=== PATIENT | female | born 1980 | race Caucasian/White ===

== ENCOUNTER 2018-12-07 14:57 | Observation (INO) | payer BC ==
[~2018-12-07] VITALS: Ht 170.2 cm; Wt 136.5 kg
[~2018-12-07 14:57] MED LIST: ACETAMINOPHEN-1 EAC1 PO; BENADRYL25 MG PO; CIPRODEX OTIC7.5 ML AD; CLONIDINE HCL0.1 MG PO; FLEXERIL10 MG PO; GABAPENTIN100 MG PO; GABAPENTIN300 MG; LAMICTAL200 MG PO; LATUDA60 MG PO; METFORMIN HCL1000 MG PO; PROPRANOLOL HCL20 MG PO; SEROQUEL100 MG PO; SEROQUEL300 MG PO; ULTRAM50 MG PO; ZITHROMAX250 MG PO; ZOLOFT100 MG PO; [UNRECOGNIZED DRUG - REMARK]
[2018-12-07] MEDS ORDERED: LITHIUM CARBON300 MG PO (15:13)
[2018-12-07] MEDS ORDERED: ZIPRASIDONE HCL60 MG PO (15:14)
[2018-12-07] MEDS ORDERED: BUSPIRONE HCL15 MG PO (15:14)
[2018-12-07] MEDS ORDERED: VITAMIN D250000 UNIT PO (15:14)
[2018-12-07] MEDS ORDERED: LEVOTHYROXINE75 MCG PO (15:15)
[2018-12-08] MEDS ORDERED: GABAPENTIN800 MG PO (14:48)
[2018-12-08] MEDS ORDERED: NEURONTIN800 MG PO (14:49)
[2018-12-08] MEDS ORDERED: VENTOLIN HFA18 GM INH (14:54)
--- NOTE | 2018-12-08 20:13 | EKG ---
[facility] [address] [facility] [place], [place] [address] Signed Normal sinus rhythm Normal ECG No previous ECGs available Confirmed by KARYNA CORNEJO MD ([id number]) on 12/08/2018 8:12:59 PM Electronically Signed By: KARYNA CORNEJO MD 12/08/182012 PATIENT NAME: JAZIEL TOWNSEND Electrocardiogram DATE OF : 80 PHYSICIAN: KARYNA CORNEJO MD REPORT #: [id number] REPORT IS CONFIDENTIAL AND NOT TO BE RELEASED WITHOUT AUTHORIZATION
[2018-12-09] MEDS ORDERED: MAPAP325 MG PO (10:19)
[2018-12-09] MEDS ORDERED: OXYCODON-ACETA1 EAC2 PO (10:19)
[2018-12-09] MEDS ORDERED: MOTRIN IB200 MG PO (10:20)
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
--- NOTE | 2018-12-11 10:33 | HP ---
[facility] [address] [place] [address] Signed ADMISSION DATE: 12/07/2018 TIME: 10:10 p.m. PROBLEM: Acute calculous cholecystitis. HISTORY OF PRESENT ILLNESS: This morbidly obese 38-year-old woman, who is and suffers from bipolar disease, who presented to the emergency room where she was evaluated by Dr. Ellis with complaints of right lower and mid abdominal pain. Concern was maintained that this would represent appendicitis. Her white count was slightly elevated, it was 11.3. Her hematocrit was 42 and platelets 275,000. Chem profile was essentially normal including liver enzymes. Beta-hCG was negative. Lipase was normal as well. Urinalysis was also normal. A CT scan was done anticipating either nephrolithiasis or appendicitis, however, she was found to have neither of those, but rather distended gallbladder with pericholecystic fluid stranding and gallbladder wall thickening and a single gallstone. On that basis, consideration was made that this represents acute calculous cholecystitis. The patient affirmed that her pain is in the right mid abdomen rather than the right upper and right lower. PAST MEDICAL HISTORY: Significant for bipolar disease. MEDICATIONS: Include: 1. Buspirone. 2. Clonidine. 3. Diphenhydramine. 4. Vitamin D2. 5. Gabapentin. 6. Synthroid. 7. Barclay carbonate. 8. Propranolol. 9. Ziprasidone. Electronically Signed By: NESSA ROSS MD 12/11/18 1033 PATIENT NAME: JAZIEL TOWNSEND HISTORY AND PHYSICAL DATE OF : 80 REPORT #: [id number] PHYSICIAN: NESSA ROSS MD PCP: MARIO SIMS REPORT IS CONFIDENTIAL AND NOT TO BE RELEASED WITHOUT AUTHORIZATION [facility] [address] [place] [address] Signed ALLERGIES: Listed as hydrocodone. SOCIAL HISTORY: The patient works at [employer] [place]. She is . They have no children. REVIEW OF SYSTEMS: Denies any shortness of breath or chest pain. She has had no dysphagia or dysuria. Denies any hematemesis or blood per rectum. PHYSICAL EXAMINATION: GENERAL: Morbidly obese white woman, who is alert and oriented. Does not appear to be manic or depressive at this time. HEENT: Mucous membranes are markedly dry. Trachea is midline. CHEST: Clear. HEART: Regular. ABDOMEN: Impressively obese. There is mild poorly localized tenderness in the right abdomen. EXTREMITIES: Show no clubbing, cyanosis, or edema. LABORATORY DATA: Lab studies are as described. CT scan was reviewed and interpretation reviewed and noted as above. ASSESSMENT: The patient apparently has acute calculous cholecystitis despite the somewhat atypical area of pain at presentation. Her morbid obesity may obfuscate the typical physical exam and complaint. I would recommend fluid resuscitation, IV antibiotics, parenteral pain medication and administration of her usual psychiatric medications. Consideration will be made for cholecystectomy tomorrow presuming further evaluation is supportive of that. MD GRABIEL Ndiaye/MODL Electronically Signed By: NESSA ROSS MD 12/11/18 1033 PATIENT NAME: JAZIEL TOWNSEND HISTORY AND PHYSICAL DATE OF : 80 REPORT #: [id number] PHYSICIAN: NESSA ROSS MD PCP: MARIO SIMS REPORT IS CONFIDENTIAL AND NOT TO BE RELEASED WITHOUT AUTHORIZATION [address] [address] Signed /[id number] cc: NESTOR Thayer MD Copies: MARIO SIMS WILLIAM S MD ~ Electronically Signed By: NESSA ROSS MD 12/11/18 1033 PATIENT NAME: JAZIEL TOWNSEND HISTORY AND PHYSICAL DATE OF : 80 REPORT #: [id number] PHYSICIAN: NESSA ROSS MD PCP: MARIO SIMS REPORT IS CONFIDENTIAL AND NOT TO BE RELEASED WITHOUT AUTHORIZATION
== END 2018-12-09 11:15 | disposition home or self-care (01) ==
LOC: ED 14:57 → MS 14:59 → ED 22:12 → MS 22:12
PROVIDERS: ADMIT Surgery
PROC: BF101ZZ Fluoroscopy of Bile Ducts using Low Osmolar Contrast (ICD-10-PCS; 2018-12-08)
PROC: 0FT44ZZ Resection of Gallbladder, Percutaneous Endoscopic Approach (ICD-10-PCS; principal; 2018-12-08 11:30)
DX: K80.00 Calculus of gallbladder with acute cholecystitis without obstruction (principal); E66.01 Morbid (severe) obesity due to excess calories; F17.210 Nicotine dependence, cigarettes, uncomplicated; F31.9 Bipolar disorder, unspecified; E03.9 Hypothyroidism, unspecified; Z79.899 Other long term (current) drug therapy; Z88.5 Allergy status to narcotic agent; Z68.42 Body mass index [BMI] 45.0-49.9, adult
CPT/HCPCS: 00790; 36415; 74177; 74300; 80053; 81001; 82247; 82465; 83615; 83690; 84100; 84478; 84550; 84703; 85025; 93005; 93010; 94762; 96361; 96372; 96375; 96376; 99285-25; 99406; G0378; J0330; J0690; J1100; J1170; J1644; J1720; J1885; J2250; J2405; J2704; J2765; J3010; J7030; J7042; J7120; Q9967

== ENCOUNTER 2019-09-28 14:21 | Emergency (ER) | payer BC ==
[~2019-09-28] VITALS: Ht 170.2 cm; Wt 136.5 kg
[~2019-09-28 14:21] MED LIST changes: +BUSPIRONE HCL15 MG PO; +GABAPENTIN800 MG PO; +LEVOTHYROXINE75 MCG PO; +LITHIUM CARBON300 MG PO; +MAPAP325 MG PO; +MOTRIN IB200 MG PO; +NEURONTIN800 MG PO; +OXYCODON-ACETA1 EAC2 PO; +VENTOLIN HFA18 GM INH; +VITAMIN D250000 UNIT PO; +ZIPRASIDONE HCL60 MG PO
[2019-09-28] MEDS ORDERED: ONDANSETRON ODT4 MG PO (14:59)
[2019-09-28] MEDS ORDERED: OPTICHAMBER DI1 EACH MISC (14:59)
--- NOTE | 2019-09-28 19:29 | EKG ---
[facility] [address] [facility] [place] [address] Signed Normal sinus rhythm Rightward axis Nonspecific T wave abnormality Prolonged QT Abnormal ECG When compared with ECG of 08-DEC-2018 10:12, Vent. rate has increased BY 32 BPM Nonspecific T wave abnormality now evident in Anterior leads Confirmed by RASHID RODRIGUEZ MD ([id number]) on 09/28/2019 7:28:51 PM Electronically Signed By: RASHID RODRIGUEZ MD 09/28/19 1929 PATIENT NAME: JAZIEL TOWNSEND Electrocardiogram DATE OF : 80 PHYSICIAN: RASHID RODRIGUEZ MD REPORT #: [id number] REPORT IS CONFIDENTIAL AND NOT TO BE RELEASED WITHOUT AUTHORIZATION
== END 2019-09-29 01:24 | disposition short-term general hospital (02) ==
LOC: ED 14:21
DX: I26.99 Other pulmonary embolism without acute cor pulmonale (principal); F31.9 Bipolar disorder, unspecified; F17.200 Nicotine dependence, unspecified, uncomplicated; Z88.5 Allergy status to narcotic agent; Z79.899 Other long term (current) drug therapy; Z79.51 Long term (current) use of inhaled steroids
CPT/HCPCS: 71260; 80053; 81001; 83880; 84484; 85025; 85379; 85730; 93005; 93010; 94640; 96361; 99285-25; J1644; J2270; J2405; J2550; J2997; J7030; Q9967

== ENCOUNTER 2023-01-17 17:42 | Emergency (ER) | payer OTHER ==
[~2023-01-17] VITALS: Ht 170.2 cm; Wt 116.6 kg
[~2023-01-17 17:42] MED LIST changes: +ELIQUIS5 MG PO; +ONDANSETRON ODT4 MG PO; +OPTICHAMBER DI1 EACH MISC; +RANITIDINE HCL150 MG PO; +REMERON30 MG PO
[2023-01-17] MEDS ORDERED: PERCOCET 5-3251 EACH PO (20:57)
[2023-01-17 22:14] VITALS: BP 130/65
== END 2023-01-17 22:14 | disposition home or self-care (01) ==
LOC: ED 17:42
DX: S01.81XA Laceration without foreign body of other part of head, initial encounter (principal); F17.200 Nicotine dependence, unspecified, uncomplicated; E11.9 Type 2 diabetes mellitus without complications; V89.2XXA Person injured in unspecified motor-vehicle accident, traffic, initial encounter; Z88.5 Allergy status to narcotic agent; Z79.01 Long term (current) use of anticoagulants; Z79.899 Other long term (current) drug therapy; Z79.890 Hormone replacement therapy
CPT/HCPCS: 12054; 36415; 70450; 71260; 72125; 73610; 74177; 80053; 84703; 85025; 86850; 86900; 86901; 90471; 90715; 99284-25; G0480; J1170; Q9967

== ENCOUNTER 2023-07-15 11:37 | Emergency (ER) | payer OTHER ==
[~2023-07-15] VITALS: Ht 170.2 cm; Wt 116.6 kg
[~2023-07-15 11:37] MED LIST changes: +PERCOCET 5-3251 EACH PO
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
[2023-07-15] MEDS ORDERED: CEPHALEXIN500 M1 PO (12:30)
[2023-07-15] MEDS ORDERED: DOXYCYCLINE HY100 MG PO (12:30)
[2023-07-15 12:36] VITALS: BP 126/82
== END 2023-07-15 12:35 | disposition home or self-care (01) ==
LOC: ED 11:37
DX: L03.116 Cellulitis of left lower limb (principal); F17.200 Nicotine dependence, unspecified, uncomplicated; R73.03 Prediabetes; Z88.5 Allergy status to narcotic agent; Z79.899 Other long term (current) drug therapy; Z79.890 Hormone replacement therapy; Z79.01 Long term (current) use of anticoagulants
CPT/HCPCS: 99283; 99406; A9270

== ENCOUNTER 2025-07-24 13:35 | Emergency (ER) | payer SELFPAY ==
[~2025-07-24] VITALS: Ht 170.2 cm; Wt 88.3 kg
[~2025-07-24 13:35] MED LIST changes: +CEPHALEXIN500 M1 PO; +DOXYCYCLINE HY100 MG PO
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
[2025-07-24] MEDS ORDERED: CYCLOBENZAPRINE10 MG PO (15:06)
[2025-07-24] MEDS ORDERED: LIDOCAINE HCL 4% 1 EACH PATCH TD ONE (15:15)
[2025-07-24] MEDS ORDERED: KETOROLAC TROMETHAMINE 15 MG/ML VIAL IM ONE (15:15)
[2025-07-24 15:21] VITALS: BP 113/65
[2025-07-24] MEDS ORDERED: LIDOCAINE PATCH REMOVAL 1 EA TD SCH (21:00)
== END 2025-07-24 15:20 | disposition home or self-care (01) ==
LOC: ED 13:35
DX: M54.42 Lumbago with sciatica, left side (principal); M54.41 Lumbago with sciatica, right side; F17.200 Nicotine dependence, unspecified, uncomplicated; Z88.5 Allergy status to narcotic agent
CPT/HCPCS: 96372; 99283; A9270; J1885